=== PATIENT | male | born 1955 | race Caucasian/White ===

== ENCOUNTER 2018-07-19 10:12 | Emergency (ER) | payer SELFPAY ==
[2018-07-19] MEDS ORDERED: Sodium Chloride 0.9% 10 ML Syringe FLUSH PRN (11:15)
[2018-07-19] MEDS ORDERED: Furosemide 20 MG/2 ML VIAL IVPUSH ONE ×2 (11:15→12:40)
--- NOTE | 2018-07-19 11:15 | EDM.PDOC ---
ED HPI GENERAL MEDICAL PROBLEM - General Chief Complaint: Respiratory Problem Stated Complaint: [facility] Time Seen by Provider: 07/19/18 11:02 Source of Information: Reports: Patient History Limitations: Reports: No Limitations - History of Present Illness INITIAL COMMENTS - FREE TEXT/NARRATIVE: 62-year-old male presents via [facility] ambulance service for evaluation and treatment shortness of breath. Patient is from [facility]. States that they have been driving around the country. He reports increasing shortness of breath since yesterday. He states he's been feeling it come on for the past few weeks but yesterday seemed to exacerbate his symptoms. He is reporting shortness of breath, right ankle edema and a nonproductive cough. He denies any chest pain, unintentional weight gain, pain in his legs, fevers, chills, nausea or vomiting. He denies feeling any palpitations. Patient reports a history of A. fib, heart failure, heart murmur and high cholesterol. He is currently on Primaxin. He states that he was switched from warfarin to pradaxa in February and has been taking the pradaxa as prescribed. He states he is using diagnosed with chronic bronchitis. At one point it was questioned if he asthma. He states his inhaler but this does not seem to help with the shortness of breath. No history of COPD. 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 - Related Data Allergies Allergy/AdvReac Type Severity Reaction Status Date / Time No Known Allergies Allergy Verified 07/19/18 10:24 Home Meds: Home Meds Dabigatran [Pradaxa] 150 mg PO BID 07/19/18 [History] Escitalopram [Lexapro] 20 mg PO DAILY 07/19/18 [History] Flecainide [Tambocor] 100 mg PO BID 07/19/18 [History] Furosemide [Lasix] 20 mg PO BID PRN 07/19/18 [History] HCTZ/Triamterene [Maxzide 50-75 MG] 50 - 75 mg PO DAILY 07/19/18 [History] Metoprolol Tartrate [Lopressor] 50 mg PO BID 07/19/18 [History] Potassium Chloride [K-Tab ER] 2 tab PO ASDIRECTED 07/19/18 [History] Sildenafil [Revatio] 60 mg PO ASDIRECTED 07/19/18 [History] atorvaSTATin [Lipitor] 10 mg PO DAILY 07/19/18 [History] Past Medical History HEENT History: Reports: Impaired Vision Other HEENT History: wears eyeglasses. Cardiovascular History: Reports: Afib, Heart Failure, Heart Murmur, High Cholesterol, Hypertension Respiratory History: Reports: Bronchitis, Recurrent Gastrointestinal History: Reports: Gastritis, Other (See Below) Other Gastrointestinal History: C-diff from antibiotics, had stomach flu. Musculoskeletal History: Reports: Fracture Psychiatric History: Reports: Anxiety - Infectious Disease History Infectious Disease History: Reports: C-Difficile, Chicken Pox, Measles, Mumps - Past Surgical History Cardiovascular Surgical History: Reports: Cardiac Ablation Social & Family History - Tobacco Use Smoking Status *Q: Never Smoker Second Hand Smoke Exposure: No - Caffeine Use Caffeine Use: Reports: Coffee - Recreational Drug Use Recreational Drug Type: Reports: Marijuana/Hashish ED ROS GENERAL - Review of Systems Review Of Systems: See Below Constitutional: Denies: Fever, Chills, Weight Gain Respiratory: Reports: Shortness of Breath, Cough. Denies: Sputum Cardiovascular: Reports: Dyspnea on Exertion, Edema. Denies: Chest Pain, Palpitations GI/Abdominal: Denies: Nausea, Vomiting Musculoskeletal: Denies: Leg Pain ED EXAM, GENERAL - Physical Exam Exam: See Below Exam Limited By: No Limitations General Appearance: Alert, WD/WN, No Apparent Distress, Obese Nose: Normal Inspection Throat/Mouth: Normal Inspection, Normal Voice, No Airway Compromise Respiratory/Chest: No Respiratory Distress, Crackles (Bilateral crackles throughout lung galindo) Cardiovascular: Normal Peripheral Pulses, Regular Rate, Rhythm, No Murmur, Systolic Murmur GI/Abdominal: Normal Bowel Sounds, Soft, Non-Tender Extremities: Normal Inspection, Other (Trace nonpitting edema bilateral lower extremities) Neurological: Alert, Oriented, Normal Cognition Psychiatric: Normal Affect, Normal Mood Skin Exam: Warm, Dry, Normal Color EKG INTERPRETATION EKG Date: 07/19/18 Time: 11:22 Rhythm: NSR Rate (Beats/Min): 55 [place]: Normal P-Wave: Present QRS: Normal ST-T: Normal QT: Normal Course - Vital Signs Last Recorded V/S: Last Vital Signs Temp 98.2 F 07/19/18 15:40 Pulse 58 L 07/19/18 15:40 Resp 16 07/19/18 15:40 BP 134/73 07/19/18 15:40 Pulse Ox 90 L 07/19/18 15:40 - Orders/Labs/Meds Labs: Laboratory Tests 07/19/18 07/19/18 07/19/18 Range/Units 10:20 10:20 10:20 WBC 11.02 H (4.23-9.07) K/mm3 RBC 5.52 (4.63-6.08) M/mm3 Hgb 17.0 (13.7-17.5) gm/L Hct 48.7 (40.1-51.0) % MCV 88.2 (79.0-92.2) fl MCH 30.8 (25.7-32.2) pg MCHC 34.9 (32.2-35.5) g/dl RDW Std Deviation 45.1 H (35.1-43.9) fL Plt Count 264 (163-337) K/mm3 MPV 9.1 L (9.4-12.3) fl Neutrophils % (Manual) 77 H (40-60) % Band Neutrophils % 0 (0-10) % Lymphocytes % (Manual) 14 L (20-40) % Atypical Lymphs % 0 % Monocytes % (Manual) 7 (2-10) % Eosinophils % (Manual) 2 (0.8-7.0) % Basophils % (Manual) 0 L (0.2-1.2) Platelet Estimate Adequate RBC Morph Comment Normal Sodium 142 (136-145) mEq/L Potassium 3.3 L (3.5-5.1) mEq/L Chloride 106 (98-107) mEq/L Carbon Dioxide 27 (21-32) mEq/L Anion Gap 12.3 (5-15) BUN 12 (7-18) mg/dL Creatinine 0.8 (0.7-1.3) mg/dL Est Cr Clr Drug Dosing 81.19 mL/min Estimated GFR (MDRD) > 60 (>60) mL/min BUN/Creatinine Ratio 15.0 (14-18) Glucose 132 H (80-115) mg/dL Calcium 8.8 (8.5-10.1) mg/dL Magnesium (1.8-2.4) mg/dl Total Bilirubin 2.5 H (0.2-1.0) mg/dL AST 23 (15-37) U/L ALT 36 (16-63) U/L Alkaline Phosphatase 116 (46-116) U/L Troponin I < 0.017 (0.00-0.056) ng/mL C-Reactive Protein (<1.0) mg/dL NT-Pro-B Natriuret Pep 613 H (0-125) pg/mL Total Protein 7.5 (6.4-8.2) g/dl Albumin 3.8 (3.4-5.0) g/dl Globulin 3.7 gm/dL Albumin/Globulin Ratio 1.0 (1-2) 07/19/18 Range/Units 10:20 WBC (4.23-9.07) K/mm3 RBC (4.63-6.08) M/mm3 Hgb (13.7-17.5) gm/L Hct (40.1-51.0) % MCV (79.0-92.2) fl MCH (25.7-32.2) pg MCHC (32.2-35.5) g/dl RDW Std Deviation (35.1-43.9) fL Plt Count (163-337) K/mm3 MPV (9.4-12.3) fl Neutrophils % (Manual) (40-60) % Band Neutrophils % (0-10) % Lymphocytes % (Manual) (20-40) % Atypical Lymphs % % Monocytes % (Manual) (2-10) % Eosinophils % (Manual) (0.8-7.0) % Basophils % (Manual) (0.2-1.2) Platelet Estimate RBC Morph Comment Sodium (136-145) mEq/L Potassium (3.5-5.1) mEq/L Chloride (98-107) mEq/L Carbon Dioxide (21-32) mEq/L Anion Gap (5-15) BUN (7-18) mg/dL Creatinine (0.7-1.3) mg/dL Est Cr Clr Drug Dosing mL/min Estimated GFR (MDRD) (>60) mL/min BUN/Creatinine Ratio (14-18) Glucose (80-115) mg/dL Calcium (8.5-10.1) mg/dL Magnesium 1.8 (1.8-2.4) mg/dl Total Bilirubin (0.2-1.0) mg/dL AST (15-37) U/L ALT (16-63) U/L Alkaline Phosphatase (46-116) U/L Troponin I (0.00-0.056) ng/mL C-Reactive Protein 1.5 H* (<1.0) mg/dL NT-Pro-B Natriuret Pep (0-125) pg/mL Total Protein (6.4-8.2) g/dl Albumin (3.4-5.0) g/dl Globulin gm/dL Albumin/Globulin Ratio (1-2) Meds: Medications Discontinued Medications Generic Name Dose Route Start Last Admin Trade Name Freq PRN Reason Stop Dose Admin Furosemide 20 mg 07/19/18 11:15 07/19/18 11:21 Lasix IVPUSH 07/19/18 11:16 20 mg ONETIME ONE Administration Furosemide 20 mg 07/19/18 12:40 07/19/18 13:15 Lasix IVPUSH 07/19/18 12:41 20 mg ONETIME ONE Administration Potassium Chloride 40 meq 07/19/18 12:14 07/19/18 12:36 Klor-Con M20 PO 07/19/18 12:15 40 meq ONETIME ONE Administration Sodium Chloride 10 ml 07/19/18 11:15 07/19/18 11:22 Saline Flush FLUSH 10 ml ASDIRECTED PRN Administration Keep Vein Open - Radiology Interpretation Free Text/Narrative:: Chest: Two views of the chest were obtained. Comparison: No previous study. Heart is mildly enlarged. Diffuse increased lung markings are seen most likely representing pulmonary vascular congestion. Audelia B lines are noted within both lung bases most likely due to early interstitial edema. Slight nodularity is scattered within the chest. Bony structures are unremarkable. Lungs are hyperinflated compatible with emphysematous change. Impression: 1. Findings are felt compatible with CHF with early interstitial edema. 2. Slight nodularity within the chest. Follow-up chest x-ray recommended after clinical therapy to make sure this nodularity does not persist indicating further evaluation. - Re-Assessments/Exams Free Text/Narrative Re-Assessment/Exam: 07/19/18 13:58 Reviewed the labs and imaging with the patient. We will attempt to wean him off the oxygen as he is not normally on oxygen. He did take 40 mg Lasix by mouth this morning. I did given him to 20 mg doses of Lasix and he has urinated. He doesn't sound as if he is taking the Lasix as prescribed. He tells me is taking 1 tab daily. The bottle states he should be taking them twice a day and if he has a 2 pound weight gain take an additional Lasix. He reported to nursing staff he is just been taking these when he has weight gain. Plan at this time is to monitor him and try and wean him off oxygen. He can be without oxygen we will discharge him. 07/19/18 15:00 Patient has received 40 mg IV Lasix on the ER and took 40 mg by mouth Lasix prior to arrival in the ER today. He has urinated. We have been able to wean him off oxygen he is satting in the lower 90s. He states at this point he feels much better. I discussed disposition with him. Not unreasonable to come into the hospital for observation. They are staying in [place] for next week. He would like to go home. I instructed him to take his Lasix as prescribed. I would like him to follow-up Tuesday in the clinic and we have made him appointment with Shahrzad Mendosa. I would like his potassium re-checked as well as the status of his heart failure rechecked. Patient agrees to following up on Tuesday. He would like to go home. Discharge instructions as documented. Departure - Departure Time of Disposition: 15:03 Disposition: Home, Self-Care 01 Condition: Fair Clinical Impression: Congestive heart failure - Discharge Information *PRESCRIPTION DRUG MONITORING PROGRAM REVIEWED*: No *COPY OF PRESCRIPTION DRUG MONITORING REPORT IN PATIENT HARJINDER: No Instructions: Heart Failure, [id number] Referrals: PCP,Unknown [Primary Care Provider] - Forms: ED Department Discharge Additional Instructions: Follow up in the clinic on Tuesday. [facility] in the three-story building. Call [phone] if you have any questions or if you need to reschedule. You have an appointment 9am Mountain time, 8:45 check-in time, with Shahrzad Mendosa. make sure you are taking your potassium and your Lasix as prescribed. Please return to the ER for symptoms change or worsen.
[2018-07-19] MEDS ORDERED: Potassium Chloride 20 MEQ Tab.ER PO ONE (12:14)
--- NOTE | 2018-07-19 14:40 | CR ---
Chest: Two views of the chest were obtained. Comparison: No previous study. Heart is mildly enlarged. Diffuse increased lung markings are seen most likely representing pulmonary vascular congestion. Audelia B lines are noted within both lung bases most likely due to early interstitial edema. Slight nodularity is scattered within the chest. Bony structures are unremarkable. Lungs are hyperinflated compatible with emphysematous change. Impression: 1. Findings are felt compatible with CHF with early interstitial edema. 2. Slight nodularity within the chest. Follow-up chest x-ray recommended after clinical therapy to make sure this nodularity does not persist indicating further evaluation. Diagnostic code #3
== END 2018-07-19 15:40 | disposition home or self-care (01) ==
LOC: JD.ED 10:12
DX: I11.0 Hypertensive heart disease with heart failure (principal); I50.9 Heart failure, unspecified; I48.91 Unspecified atrial fibrillation; F41.9 Anxiety disorder, unspecified; Z79.899 Other long term (current) drug therapy
CPT/HCPCS: 36415; 71046; 80053; 83735; 83880; 84484; 85007; 85027; 86140; 93005; 96374; 96376; 99285; A9270